=== PATIENT | female | born 1975 | race African-American/Black ===

== ENCOUNTER 2018-03-23 22:46 | Emergency (ER) | payer BC ==
[~2018-03-23] VITALS: Ht 167.6 cm; Wt 107.0 kg
[2018-03-23] MEDS ORDERED: PREDNISONE 20MG TABLET PO ONE (23:45)
[2018-03-23] MEDS ORDERED: DIPHENHYDRAMINE 50MG CAPSULE PO ONE (23:45)
[2018-03-24 01:02] VITALS: BP 143/58
== END 2018-03-24 01:03 | disposition home or self-care (01) ==
LOC: ER 22:46
DX: R22.0 Localized swelling, mass and lump, head (principal); R03.0 Elevated blood-pressure reading, without diagnosis of hypertension; T50.995A Adverse effect of other drugs, medicaments and biological substances, initial encounter; Y92.513 Shop (commercial) as the place of occurrence of the external cause
CPT/HCPCS: 99283; J7512; Q0163

== ENCOUNTER 2024-08-18 21:40 | Emergency (ER) | payer BC ==
[~2024-08-18] VITALS: Ht 167.6 cm; Wt 114.0 kg
[2024-08-18 22:01] VITALS: O2SAT 98
[2024-08-19 00:49] LABS: BASOPHILS % 0.4 % (0.0-2.0); DIFFERENTIAL COMMENT 0; EOSINOPHILS % 2.6 % (0.0-5.0); HEMATOCRIT. 40.1 % (36.0-48.0); LYMPHOCYTES % 46.9 % (20.0-50.0); MEAN CORPUSCULAR HEMOGLOBIN 27.3 pg (28.0-32.0); MEAN CORPUSCULAR HGB CONC 32.4 g/dL (31.0-37.0); MEAN CORPUSCULAR VOLUME 84.2 fL (81.0-99.0); MEAN PLATELET VOLUME 11.6 fl (7.4-10.4); MONOCYTES % 7.6 % (2.0-8.0); NEUTROPHILS % 42.5 % (40.0-76.0); PLATELET 186 x1000/uL (130-400); RED BLOOD CELL COUNT 4.76 mill/uL (4.2-5.4); RED CELL DISTRIBUTION WIDTH 15.4 % (11.6-14.6); WHITE BLOOD COUNT 5.6 x1000/uL (4.5-11.0)
[2024-08-19 00:55] LABS: CHLORIDE 108 mEq/L (98-107); POTASSIUM 3.6 mEq/L (3.5-5.1); SODIUM 142 mEq/L (136-145)
[2024-08-19 00:56] LABS: CALCIUM 9.7 mg/dL (8.7-10.4); CARBON DIOXIDE 30 mEq/L (21-32)
[2024-08-19 01:01] LABS: GLUCOSE 91 mg/dL (70-105); UREA NITROGEN BLOOD 11 mg/dL (9-23)
[2024-08-19 01:03] LABS: ALANINE AMINOTRANSFERASE 12 IU/L (10-49); ALBUMIN 4.1 g/dL (3.2-4.8); ASPARTATE AMINOTRANSFERASE 17 IU/L (<34); BILIRUBIN DIRECT 0.1 mg/dL (<=3.0); BILIRUBIN TOTAL 0.5 mg/dL (0.1-1.0)
[2024-08-19 01:04] LABS: PROTEIN TOTAL 7.4 g/dL (6.0-8.3)
[2024-08-19 01:15] LABS: HCG SCREEN NEGATIVE
[2024-08-19 01:18] LABS: TROPONIN I HIGH SENSITIVITY < 4 ng/L (3.0-34)
[2024-08-19 01:35] VITALS: BP 142/88; PULSE 74; RESP 16; TEMP 36.7; O2SAT 96
== END 2024-08-19 01:39 | disposition home or self-care (01) ==
LOC: ER 21:40
DX: R60.0 Localized edema (principal); Z98.890 Other specified postprocedural states
CPT/HCPCS: 36415; 71045; 80048; 80076; 83880; 84484; 84703; 85025; 93005; 93970; 99285